=== PATIENT | female | born 1950 | race American Indian/Alaskan Native ===

== ENCOUNTER 2020-07-17 10:15 | Outpatient (CLI) | payer MEDICARE ==
[2020-07-17 11:12] LABS: ABG Base Excess 0.7 mmol/L (-2.0-3.0); ABG HCO3 25.3 mmol/L (20.0-26.0); ABG Methemoglobin 0.5 % (0.0-1.5); ABG PCO2 40.1 mm Hg; ABG PH 7.417 pH Units (7.350-7.450); ABG PO2 87.2 mm Hg (80.0-90.0)
--- NOTE | 2020-07-17 12:26 | Cat Scan Report ---
CT CHEST WITH CONTRAST INDICATION / CLINICAL INFORMATION: widened mediastinum. Abnormal chest x-ray TECHNIQUE: Axial CT images were obtained through the chest after 100 cc of Omnipaque 300 IV contrast. Sagittal a nd coronal reformatted images. All CT scans at this location are performed using CT dose reduction fo r ALARA by means of automated exposure control. COMPARISON: Chest x-ray and CTA chest dated 10/27/2018 FINDINGS: HEART: No significant abnormality. THORACIC AORTA: Mildly ectatic. No aneurysm, dissection or stenosis. MEDIASTINUM and DANUTA: There is marketed enlargement and heterogeneity of the thyroid gland. The infer ior thyroid extends into the mediastinum to the level of the patrice. The superior border of the thyro id gland is not included. The enlarged thyroid mildly compresses the mid thoracic trachea but it sherif ins patent. The trachea measures at its smallest point 1.1 x 1.6 cm in axial plane. The remaining me diastinal contents are unremarkable. LUNGS: No acute air space or interstitial disease. PLEURA: No significant pleural effusion. No pneumothorax. SKELETAL SYSTEM: No significant abnormality. UPPER ABDOMEN: No acute abnormality. Mild diverticulosis of the colon is noted. A 2.5 cm intermediate density lesion is noted in the mid right kidney which probably represents a hemorrhagic cyst. ADDITIONAL FINDINGS: None. IMPRESSION: Marketed enlargement of the thyroid gland as described. There is a significant substernal component p robably explains mediastinal widening seen on CT. This is grossly unchanged since the CTA chest dated 10/27/2018. Signer Name: Dominick Sprague Jr, MD Signed: 07/17/2020 12:22 PM Workstation Name: [id number]
== END 2020-07-17 10:16 | disposition home or self-care (01) ==
LOC: CT 10:15
PROVIDERS: ATTEND Internal Medicine
DX: E04.8 Other specified nontoxic goiter (principal); J32.9 Chronic sinusitis, unspecified; I10 Essential (primary) hypertension; E66.9 Obesity, unspecified; E78.00 Pure hypercholesterolemia, unspecified; E07.9 Disorder of thyroid, unspecified; D64.9 Anemia, unspecified; J30.9 Allergic rhinitis, unspecified; Z85.3 Personal history of malignant neoplasm of breast; Z85.528 Personal history of other malignant neoplasm of kidney
CPT/HCPCS: 36415; 36600; 71260; 80048; 82785; 82803; Q9967